=== PATIENT | female | born 2000 | race Caucasian/White ===

== ENCOUNTER 2019-09-08 04:37 | Emergency (ER) | payer MEDICAID, OTHER ==
[~2019-09-08] VITALS: Ht 162.5 cm; Wt 56.8 kg
--- NOTE | 2019-09-08 05:35 | ED Cough/URI ---
General Chief Complaint: Cough/Cold/Flu Symptoms Stated Complaint: SOB,COUGH,CHEST STANLEY,BODY ACHES Source: patient Exam Limitations: no limitations History of Present Illness Date Seen by Provider: Sep 08, 2019 Time Seen by Provider: 05:22 Initial Comments Patient presents to ER by private conveyance with significant other and chief c omplaint of one to 2 days of malaise, body aches and no fever. She's had a cough nonproductive. She says she has a history of pneumonia. She does not have a history of asthma COPD. She smokes quarter to half a pack of cigarettes per day. She's not having any significant medical history and does not follow with a primary care doctor. She does not take any medications or control. She is not having any nausea vomiting diarrhea. She took Tylenol about an hour prior to coming to the emergency room. Allergies and Home Medications Allergies Coded Allergies: No Known Drug Allergies (Unverified , 09/08/19) Patient Home Medication List Home Medication List Reviewed: Yes Review of Systems Review of Systems Constitutional: chills; No fever; malaise EENTM: No ear discharge, No ear pain Respiratory: cough; No phlegm, No short of breath, No wheezing Cardiovascular: chest pain (on coughing); No palpitations Gastrointestinal: No abdominal pain, No constipation Past Mvihkzs-Aflica-Mukwet Hx Patient Social History Alcohol Use: Denies Use Smoking Status: Current Everyday Smoker Type Used: Cigarettes Recent Foreign Travel: No Contact w/Someone Who Travel: No Physical Exam Vital Signs - First Documented 09/08/19 05:15 O2 Delivery Room Air Capillary Refill : Height: '" Weight: lbs. oz. kg; BMI Method: General Appearance: WD/WN, mild distress Eyes: Bilateral Eye Normal Inspection, Bilateral Eye PERRL, Bilateral Eye EOMI HEENT: PERRL/EOMI, normal ENT inspection, pharynx normal, TM abnormal (R) (bilateral mucoid effusion without bulging, erythema, injection or loss of tympanic membrane landmarks), TM abnormal (L) Neck: non-tender, full range of motion, supple, normal inspection Respiratory: lungs clear, normal breath sounds, no respiratory distress, no accessory muscle use Cardiovascular: normal peripheral pulses, regular rate, rhythm Neurologic/Psychiatric: alert, normal mood/affect, oriented x 3 Skin: normal color, warm/dry Progress/Results/Core Measures Suspected Sepsis SIRS Temperature: Pulse: Respiratory Rate: Blood Pressure / Mean: Results/Orders Micro Results Microbiology 09/08/19 Influenza Types A,B Antigen (ABDIAZIZ) - Final, Complete My Orders Orders - MATIAS LANGE Influenza A And B Antigens (09/08/19 05:29) Urine Bedside (09/08/19 05:29) Chest Pa/Lat (2 View) (09/08/19 05:29) Vital Signs/I&O 09/08/19 05:15 O2 Delivery Room Air Capillary Refill : Progress Note : Time: 05:34 Progress Note Patient has non-adventitious lung sounds, aseptic vital signs. She would like to rule out pneumonia. We'll get a bedside test and chest x-ray. Influenza swab. Diagnostic Imaging Diagonstic Imaging: Xray Plain Films/CT/US/NM/MRI: chest (2v) Comments No acute cardiopulmonary process. Radiology over read pending. Hardware from previous surgeries noted. Reviewed: Reviewed by Me Departure Impression Primary Impression: Upper respiratory tract infection Qualified Codes: J06.9 - Acute upper respiratory infection, unspecified Disposition: 01 HOME, SELF-CARE Condition: Stable Departure-Patient Inst. Decision time for Depature: 06:03 Referrals: NO,LOCAL PHYSICIAN (PCP/Family) Primary Care Physician Patient Instructions: Acute Bronchitis, Adult (DC) Add. Discharge Instructions: Drink plenty of fluids, humidifiers and vapor rubs can be helpful. Tylenol and ibuprofen as necessary for body aches or malaise. Udhn-xjl-pkjixcd cough symptoms medicine as necessary. Tessalon Perles 1 capsule every 6 hours as needed for cough. Follow up with your primary care provider as necessary. All discharge instructions reviewed with patient and/or family. Voiced understanding. Scripts Benzonatate (Tessalon Perle) 100 Mg Capsule 100 MG PO Q6H PRN for COUGH, #20 CAP 0 Refills Prov: MATIAS LANGE 09/08/19 MATIAS LANGE Sep 08, 2019 05:35
[2019-09-08] MEDS ORDERED: BENZ-13 PO (06:05)
[2019-09-08 06:06] VITALS: BP 117/87
--- NOTE | 2019-09-08 06:06 | NUR ---
PT ASKED MULTIPLE DIFFERENT TIMES TO STAY IN HER ROOM SHE KEPT LEAVING ROOM AND WANDERING IN THE MANN LOOKING FOR HER BOYFRIEND WHO IS ALSO A PT AND ASKING FOR FLU SWAB AND XRAY RESULTS. AT THIS TIME PT STATES, "WE LIVE TOGETHER, HE'S MY RIDE, LIKE I SHOULD BE ABLE TO GO TO HIS ROOM". EXPLAINED TO PT THAT DR. LANGE WOULD BE IN TO TALK TO HER SOON ABOUT HER RESULTS. PT STATES, "I'M GOING TO MY BOYFRIENDS ROOM AND YOU CAN'T STOP ME." PT INFORMED SHE WOULD NEED TO SIGN OUT AMA IF SHE WAS GOING TO REFUSE TO STAY IN HER ROOM AND THEIR CARE NEEDS TO BE SEPARATE AT THIS TIME. PT REFUSES TO SIGN AMA FORM.
--- NOTE | 2019-09-08 06:16 | Diagnostic Imaging Report ---
INDICATION: Cough and congestion PA and lateral chest The patient has stabilization rods in the thoracolumbar spine. Heart size and pulmonary vascularity are normal. Lungs are clear. There are no effusions or pneumothoraces. IMPRESSION: No acute abnormalities in the chest Dictated by: Dictated on workstation # [id number]
== END 2019-09-08 06:06 | disposition left against medical advice (07) ==
LOC: ER 04:42
DX: J06.9 Acute upper respiratory infection, unspecified (principal); F17.210 Nicotine dependence, cigarettes, uncomplicated
CPT/HCPCS: 71046; 84703; 87804

== ENCOUNTER 2019-11-15 14:49 | Emergency (ER) | payer MEDICAID ==
[~2019-11-15] VITALS: Ht 162.6 cm; Wt 52.2 kg
[~2019-11-15 14:49] MED LIST: BENZ-13 PO
[2019-11-15 14:50] VITALS: BP 110/77
[2019-11-15] MEDS ORDERED: LACTATED RINGERS 1,000 ML IV ONE (15:02)
[2019-11-15 15:11] LABS: BASOPHILS % (AUTO) 1 % (0-10); EOSINOPHILS # (AUTO) 0.2 10^3/uL (0.0-0.3); EOSINOPHILS % (AUTO) 2 % (0-10); HEMATOCRIT 40 % (35-52); HEMOGLOBIN 13.6 G/DL (11.5-16.0); LYMPHOCYTES # (AUTO) 1.6 X 10^3 (1.0-4.0); LYMPHOCYTES % (AUTO) 21 % (12-44); MEAN CORPUSCULAR HEMOGLOBIN 30 PG (25-34); MEAN CORPUSCULAR HGB CONC 34 G/DL (32-36); MEAN CORPUSCULAR VOLUME 90 FL (80-99); MEAN PLATELET VOLUME 11.1 FL (7.4-10.4); MONOCYTES # (AUTO) 0.5 X 10^3 (0.0-1.0); MONOCYTES % (AUTO) 6 % (0-12); NEUTROPHILS # (AUTO) 5.7 X 10^3 (1.8-7.8); NEUTROPHILS % (AUTO) 71 % (42-75); PLATELET COUNT 239 10^3/uL (130-400); RED CELL DISTRIBUTION WIDTH 12.3 % (10.0-14.5)
--- NOTE | 2019-11-15 15:11 | ED General ---
General Chief Complaint: Dizziness/Syncope Stated Complaint: SYNCOPAL EPISODE Nursing Triage Note: Pt to room #5 via [facility] from [facility] with c/o witnessed syncopal episode. Ems advise pt s/o caught pt et lowered her to the floor after experiencing episode. 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 Upon arrival pt a&ox4. Pt reports to be approx 5wks . Pt reports intermittent syncopal episodes for >2years. Pt reports to have experienced chest discomfort et SOA prior to syncopal episode. Pt denies pain or discomfort at this current time. Nursing Sepsis Screen: No Definite Risk Source of Information: Patient (SOMEWHAT VAGUE HIS) History of Present Illness Date Seen by Provider: Nov 15, 2019 Time Seen by Provider: 14:55 Initial Comments PT ARRIVES VIA [facility] FROM [facility] PT BEGAN TO GET DIZZY AND HAD NEAR-SYNCOPAL EPISODE--STATES SHE SLOWLY WENT DOWN, AND HER BOYFRIEND CAUGHT HER NO INJURY STATES THIS HAS HAPPENED SEVERAL TIMES OVER THE LAST 2 YEARS. PT STATES SHE "FEELS GREAT" NOW AND HER SYMPTOMS ARE ALL GONE STATES IMMEDIATELY PRIOR TO DIZZINESS, SHE HAD SOME CHEST PAIN AND SHORTNESS OF BREATH, AND HER ENTIRE BODY WAS NUMB AND TINGLY AND HER HEAD FELT NUMB NO VISION CHANGES NO NAUSEA/VOMITING STATES SHE IS 4 WEEKS --WENT TO [facility] IN [place], HAS NOT MADE AN SIDRA OINTMENT WITH OB YET ACCUCHECK 125 BY EMS 1506--PT NOW LEAVING AMA, AND IS REFUSING ALL TESTS, BUT 'WANTS SOMETHING TO EAT BEFORE SHE LEAVES" --ADVISED PT THAT SHE WAS FREE TO LEAVE AND GET SOMETHING TO EAT ON HER OWN PCP: NONE Allergies and Home Medications Allergies Coded Allergies: No Known Drug Allergies (Unverified , 09/08/19) Home Medications Benzonatate 100 Mg Capsule, 100 MG PO Q6H PRN for COUGH Prescribed by: MATIAS LANGE on 09/08/19 0605 Patient Home Medication List Home Medication List Reviewed: Yes Review of Systems Review of Systems Constitutional: dizziness, malaise, weakness EENTM: no symptoms reported Respiratory: see HPI Cardiovascular: see HPI Gastrointestinal: no symptoms reported Genitourinary: no symptoms reported : Yes Musculoskeletal: no symptoms reported Skin: no symptoms reported Psychiatric/Neurological: See HPI Hematologic/Lymphatic: No Symptoms Reported Immunological/Allergic: no symptoms reported Past Blhrllt-Wdzxqz-Agkpgq Hx Past Med/Social Hx: Reviewed and Corrections made Patient Social History Alcohol Use: Denies Use Recreational Drug Use: No Smoking Status: Former Smoker Type Used: Cigarettes 2nd Hand Smoke Exposure: No Recent Foreign Travel: No Contact w/Someone Who Travel: No Recent Infectious Disease Expo: No Recent Hopitalizations: No Physical Exam Vital Signs Vital Signs - First Documented 11/15/19 14:50 Pulse 92 Resp 15 B/P (MAP) 110/77 (88) Pulse Ox 100 O2 Delivery Room Air Capillary Refill : Less Than 3 Seconds Height, Weight, BMI Height: '" Weight: lbs. oz. kg; 19.00 BMI Method: General Appearance: Thin, Other (DOES NOT MAKE EYE CONTACT, APPEARS SOMEWHAT "SPACEY" WITH SOMEWHAT SLOWED THOUGHT PROCESSES) Respiratory: No Respiratory Distress Cardiovascular: Regular Rate, Rhythm Neurologic/Psychiatric: Alert, Oriented x3, Other (AMBULATES WITHOUT DIF FICULTY) Progress/Results/Core Measures Suspected Sepsis Recent Fever Within 48 Hours: No Infection Criteria Present: None New/Unexplained Altered Menta: No Sepsis Screen: No Definite Risk SIRS Temperature: Pulse: 92 Respiratory Rate: 15 Blood Pressure 110 /77 Mean: 88 Results/Orders My Orders Orders - KYLE GOMEZ DO Accucheck Stat ONCE (11/15/19 15:02) Ed Iv/Invasive Line Start (11/15/19 15:02) Ekg Tracing (11/15/19 15:02) Monitor-Rhythm Ecg Trace Only (11/15/19 15:02) Orthostatic Vital Signs (Adult (11/15/19 15:02) Acetaminophen (11/15/19 15:02) Alcohol (11/15/19 15:02) Cbc With Automated Diff (11/15/19 15:02) Comprehensive Metabolic Panel (11/15/19 15:02) Drug Screen Stat (Urine) (11/15/19 15:02) Hcg,Quantitative (11/15/19 15:02) Magnesium (11/15/19 15:02) Protime With Inr (11/15/19 15:02) Partial Thromboplastin Time (11/15/19 15:02) Salicylate (11/15/19 15:02) Thyroid Analyzer (11/15/19 15:02) Ua Culture If Indicated (11/15/19 15:02) Myoglobin Serum (11/15/19 15:02) Ed Iv/Invasive Line Start (11/15/19 15:02) Lactated Ringers (Lr 1000 Ml Iv Solution (11/15/19 15:02) Vital Signs/I&O 11/15/19 14:50 Pulse 92 Resp 15 B/P (MAP) 110/77 (88) Pulse Ox 100 O2 Delivery Room Air Capillary Refill : Less Than 3 Seconds Blood Pressure Mean: 88 ECG Initial ECG Impression Date: Nov 15, 2019 Initial ECG Impression Time: 14:54 Initial ECG Rate: 93 Initial ECG Rhythm: Normal Sinus Initial ECG Comparisson: No Previous ECG Available Departure Impression Primary Impression: Left against medical advice Disposition: 07 AGAINST MEDICAL ADVICE Condition: Against Medical Advice Departure-Patient Inst. Referrals: NO,LOCAL PHYSICIAN (PCP/Family) Primary Care Physician KYLE GOMEZ DO Nov 15, 2019 15:11
[2019-11-15 15:21] LABS: INR 1.1 (0.8-1.4); PROTHROMBIN TIME PATIENT 14.5 SEC (12.2-14.7)
[2019-11-15 15:30] LABS: ALANINE AMINOTRANSFERASE 14 U/L (0-55); ALBUMIN 4.6 GM/DL (3.2-4.5); ALKALINE PHOSPHATASE 48 U/L (40-136); BILIRUBIN,TOTAL 0.4 MG/DL (0.1-1.0); BUN/CREATININE RATIO 18; CALCIUM 9.6 MG/DL (8.5-10.1); CARBON DIOXIDE 22 MMOL/L (21-32); CHLORIDE 105 MMOL/L (98-107); CREATININE SERUM 0.68 MG/DL (0.60-1.30); GFR ESTIMATED > 60; GLUCOSE 121 MG/DL (70-105); MAGNESIUM 1.7 MG/DL (1.6-2.4); POTASSIUM 3.6 MMOL/L (3.6-5.0); SALICYLATE < 5.0 MG/DL (5.0-20.0); SODIUM 136 MMOL/L (135-145); TOTAL PROTEIN 7.3 GM/DL (6.4-8.2)
[2019-11-15 15:48] LABS: ACETAMINOPHEN < 10 UG/ML (10-30)
[2019-11-15 15:50] LABS: TSH (THYROID ANALYZER) 1.04 UIU/ML (0.35-4.94)
== END 2019-11-15 15:10 | disposition left against medical advice (07) ==
LOC: EDUNIT# 14:49 → ER 14:50
DX: O26.891 Other specified pregnancy related conditions, first trimester (principal); R55 Syncope and collapse; Z87.891 Personal history of nicotine dependence; Z3A.01 Less than 8 weeks gestation of pregnancy
CPT/HCPCS: 36415; 80053; 80320; 80329; 83735; 83874; 84443; 84702; 85025; 85610; 85730; 93005; 93041

== ENCOUNTER 2022-08-31 16:11 | Emergency (ER) | payer MEDICAID ==
[~2022-08-31] VITALS: Ht 162.5 cm; Wt 58.9 kg
--- NOTE | 2022-08-31 16:38 | ED Syncope ---
General Chief Complaint: Dizziness/Syncope Stated Complaint: NEAR SYNCOPAL EPISODE Nursing Triage Note: PT ARRIVED BY [facility]. 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 PT DENSIES LOC. HX OF HEART PALPIATIONS. Source of Information: Patient Exam Limitations: No Limitations History of Present Illness Date Seen by Provider: Aug 31, 2022 Time Seen by Provider: 16:22 Initial Comments 22-year-old female presents via EMS for near syncopal episode. Patient reports she was shopping at the mall and was checking out when she became hot, dizzy, and shaky. Patient reports she had to lie down. Patient denies loss of consciousness. Patient also complained of left chest pain that starts in epigastric area and radiates to left upper chest and some difficulty breathing. Patient reports that she ate today. Patient reports she only drinks approx imately 3 water bottles a day. Patient is breast-feeding, she has a 3-month-old at home. Patient reports she also recently recovered from the flu. Patient reports she has been seen for similar symptoms. Patient states she left AMA before the test results. Patient reports only past medical history is PVCs. Denies any current medications. Timing/Prior Episodes: Other (hx of similar symptoms) Symptoms Prior to Episode: Lightheadedness, Other (flushed) Precipitating Factors: Activity Loss of Consciousness: No Loss of Consciousness Current Symptoms: Lightheadedness, Nausea, Other (feeling flushed) Allergies and Home Medications Allergies Coded Allergies: No Known Drug Allergies (Unverified , 09/08/19) Patient Home Medication List Home Medication List Reviewed: Yes Benzonatate (Tessalon Perle) 100 Mg Capsule, 100 MG PO Q6H PRN for COUGH Prescribed by: MATIAS LANGE on 09/08/19 0605 Review of Systems Constitutional: dizziness Respiratory: no symptoms reported Cardiovascular: chest pain Gastrointestinal: abdominal pain (epigastric), nausea Genitourinary: no symptoms reported Past Qylajqo-Rqlwgy-Rfroyg Hx Patient Social History Tobacco Use?: Yes Use of E-Cig and/or Vaping dev: Yes E-Cig or Vaping type used: Nicotine Substance use?: No Alcohol Use?: No Physical Exam Vital Signs Vital Signs - First Documented 08/31/22 16:14 Temp 35.9 Pulse 83 B/P (MAP) 137/75 (95) Pulse Ox 100 O2 Delivery Room Air Capillary Refill : Height, Weight, BMI Height: '" Weight: lbs. oz. kg; 22.00 BMI Method: General Appearance: Mild Distress, Other (shaking, anxious) HEENT: PERRL/EOMI Neck: Non Tender, Supple Cardiovascular: Regular Rate, Rhythm, No Edema, No Gallop, No JVD, No Murmur Respiratory: Chest Non Tender, Lungs Clear, Normal Breath Sounds, No Accessory Muscle Use, No Respiratory Distress Gastrointestinal: Normal Bowel Sounds, No Organomegaly, No Pulsatile Mass, Non Tender, Soft Extremities: Normal Inspection, Normal Range of Motion Neurologic/Psychiatric: Alert, Oriented x3, kick press operator II-XII Norm as Tested Cranial Nerves: Normal Hearing, Normal Speech, PERRL Coordination/Gait: Normal Gait Motor/Sensory: No Motor Deficit, No Sensory Deficit Skin: Normal Color, Warm/Dry Progress/Results/Core Measures Results/Orders Lab Results Laboratory Tests Test 08/31/22 16:15 08/31/22 16:40 08/31/22 16:54 Range/Units White Blood Count 9.1 4.3-11.0 10^3/uL Red Blood Count 4.43 3.80-5.11 10^6/uL Hemoglobin 12.2 11.5-16.0 g/dL Hematocrit 37 35-52 % Mean Corpuscular Volume 83 80-99 fL Mean Corpuscular Hemoglobin 28 25-34 pg Mean Corpuscular Hemoglobin Concent 33 32-36 g/dL Red Cell Distribution Width 16.0 H 10.0-14.5 % Platelet Count 358 130-400 10^3/uL Mean Platelet Volume 10.5 9.0-12.2 fL Immature Granulocyte % (Auto) 0 % Neutrophils (%) (Auto) 52 42-75 % Lymphocytes (%) (Auto) 34 12-44 % Monocytes (%) (Auto) 9 0-12 % Eosinophils (%) (Auto) 4 0-10 % Basophils (%) (Auto) 1 0-10 % Neutrophils # (Auto) 4.8 1.8-7.8 10^3/uL Lymphocytes # (Auto) 3.1 1.0-4.0 10^3/uL Monocytes # (Auto) 0.8 0.0-1.0 10^3/uL Eosinophils # (Auto) 0.3 0.0-0.3 10^3/uL Basophils # (Auto) 0.1 0.0-0.1 10^3/uL Immature Granulocyte # (Auto) 0.0 0.0-0.1 10^3/uL Sodium Level 138 135-145 MMOL/L Potassium Level 3.5 L 3.6-5.0 MMOL/L Chloride Level 106 98-107 MMOL/L Carbon Dioxide Level 18 L 21-32 MMOL/L Anion Gap 14 5-14 MMOL/L Blood Urea Nitrogen 15 7-18 MG/DL Creatinine 0.65 0.60-1.30 MG/DL Estimat Glomerular Filtration Rate 127 BUN/Creatinine Ratio 23 Glucose Level 90 70-105 MG/DL Calcium Level 9.1 8.5-10.1 MG/DL Corrected Calcium 8.8 8.5-10.1 MG/DL Magnesium Level 1.8 1.6-2.4 MG/DL Total Bilirubin 0.3 0.1-1.0 MG/DL Aspartate Amino Transf (AST/SGOT) 18 5-34 U/L Alanine Aminotransferase (ALT/SGPT) 22 0-55 U/L Alkaline Phosphatase 73 40-136 U/L Troponin I < 0.028 <0.028 NG/ML Total Protein 7.5 6.4-8.2 GM/DL Albumin 4.4 3.2-4.5 GM/DL Lipase 56 8-78 U/L Prothrombin Time 13.9 12.2-14.7 SEC INR Comment 1.0 0.8-1.4 Activated Partial Thromboplast Time 32 24-35 SEC Urine Color YELLOW Urine Clarity CLEAR Urine pH 6.5 5-9 Urine Specific [place] 1.020 1.016-1.022 Urine Protein NEGATIVE NEGATIVE Urine Glucose (UA) NEGATIVE NEGATIVE Urine Ketones NEGATIVE NEGATIVE Urine Nitrite NEGATIVE NEGATIVE Urine Bilirubin NEGATIVE NEGATIVE Urine Urobilinogen 0.2 < = 1.0 MG/DL Urine Leukocyte Esterase TRACE H NEGATIVE Urine RBC (Auto) NEGATIVE NEGATIVE Urine RBC NONE /HPF Urine WBC RARE /HPF Urine Squamous Epithelial Cells 2-5 /HPF Urine Crystals NONE /LPF Urine Bacteria NEGATIVE /HPF Urine Casts NONE /LPF Urine Mucus NEGATIVE /LPF Urine Culture Indicated NO My Orders Orders - GRAY LIGHT ORGANIC PREPARATION ANALYST Cbc With Automated Diff (08/31/22 16:32) Magnesium (08/31/22 16:32) Chest 1 View, Ap/Pa Only (08/31/22 16:32) Comprehensive Metabolic Panel (08/31/22 16:32) Protime With Inr (08/31/22 16:32) Partial Thromboplastin Time (08/31/22 16:32) Monitor-Rhythm Ecg Trace Only (08/31/22 16:32) Ed Iv/Invasive Line Start (08/31/22 16:32) Troponin I [place] (08/31/22 16:32) Ed Iv/Invasive Line Start (08/31/22 16:32) Ns Iv 1000 Ml (Sodium Chloride 0.9%) (08/31/22 16:45) Ua Culture If Indicated (08/31/22 16:32) Urine Bedside (08/31/22 16:32) Ondansetron Injection (Zofran Injectio (08/31/22 16:45) Lipase (08/31/22 16:44) Medications Given in ED Current Medications Medications Dose Ordered Sig/John Route Start Time Stop Time Status Last Admin Dose Admin Ondansetron HCl 4 mg ONCE ONCE IVP 08/31/22 16:45 08/31/22 16:46 DC 08/31/22 16:43 4 MG Vital Signs/I&O 08/31/22 16:14 Temp 35.9 Pulse 83 B/P (MAP) 137/75 (95) Pulse Ox 100 O2 Delivery Room Air Blood Pressure Mean: 95 Progress Progress Note #1: Time: 16:25 Progress Note Patient seen and evaluated. Work-up initiated including CBC, CMP, lipase, coags , troponin, UA and UCG. IV fluids ordered for possible dehydration. Zofran ordered for nausea. Progress Note #2: Time: 17:24 Progress Note Patient reevaluated. Discussed results of test with patient. Symptoms likely related to dehydration. Patient instructed to increase water intake. Decrease coffee intake as well as other caffeinated and high sugar drinks. Patient instructed follow-up with primary care provider. Initial ECG Impression Date: Aug 31, 2022 Initial ECG Impression Time: 14:30 Initial ECG Rate: 79 Initial ECG Rhythm: Normal Sinus Initial ECG Intervals: Normal Initial ECG Impression: Normal Initial ECG Comparisson: Unchanged Diagnostic Imaging Diagonstic Imaging: Xray Plain Films/CT/US/NM/MRI: chest Comments Date of Exam:08/31/22 CHEST 1 VIEW, AP/PA ONLY EXAMINATION: Chest 1 view HISTORY: Chest pain COMPARISON: None available. FINDINGS: Heart size and pulmonary vasculature are normal. The lungs are clear without consolidation, pleural effusion, or pneumothorax. Surgical changes from multilevel spinal fusion. IMPRESSION: 1. No acute radiographic abnormality in the chest. Dictated by: Dictated on workstation # [id number] Dict: 08/31/221706 Trans: 08/31/221711 [facility] [id number] Interpreted by: JASIEL BRUMFIELD DO Electronically signed by: JASIEL BRUMFIELD DO 08/31/221711 Departure Impression Primary Impression: Dizziness Disposition: 01 HOME, SELF-CARE Condition: Stable Departure-Patient Inst. Decision time for Depature: 17:25 Referrals: NO,LOCAL PHYSICIAN (PCP/Family) Primary Care Physician Patient Instructions: Dizziness, Adult ED Add. Discharge Instructions: Symptoms likely related to dehydration. Increase water intake. Decrease coffee and other caffeinated and high sugar drinks. Follow-up with primary care provider. Return for any new or concerning symptoms. All discharge instructions reviewed with patient and/or family. Voiced understanding. GRAY LIGHT APRN Aug 31, 2022 16:38
[2022-08-31 16:39] LABS: BASOPHILS # (AUTO) 0.1 10^3/uL (0.0-0.1); BASOPHILS % (AUTO) 1 % (0-10); EOSINOPHILS # (AUTO) 0.3 10^3/uL (0.0-0.3); EOSINOPHILS % (AUTO) 4 % (0-10); HEMATOCRIT 37 % (35-52); HEMOGLOBIN 12.2 g/dL (11.5-16.0); LYMPHOCYTES # (AUTO) 3.1 10^3/uL (1.0-4.0); LYMPHOCYTES % (AUTO) 34 % (12-44); MEAN CORPUSCULAR HEMOGLOBIN 28 pg (25-34); MEAN CORPUSCULAR HGB CONC 33 g/dL (32-36); MEAN CORPUSCULAR VOLUME 83 fL (80-99); MEAN PLATELET VOLUME 10.5 fL (9.0-12.2); MONOCYTES # (AUTO) 0.8 10^3/uL (0.0-1.0); MONOCYTES % (AUTO) 9 % (0-12); NEUTROPHILS # (AUTO) 4.8 10^3/uL (1.8-7.8); NEUTROPHILS % (AUTO) 52 % (42-75); PLATELET COUNT 358 10^3/uL (130-400); WHITE BLOOD COUNT 9.1 10^3/uL (4.3-11.0)
[2022-08-31 16:42] LABS: ALBUMIN 4.4 GM/DL (3.2-4.5)
[2022-08-31 16:43] LABS: POTASSIUM 3.5 MMOL/L (3.6-5.0)
[2022-08-31 16:44] LABS: CALCIUM 9.1 MG/DL (8.5-10.1)
[2022-08-31 16:45] LABS: TOTAL PROTEIN 7.5 GM/DL (6.4-8.2)
[2022-08-31] MEDS ORDERED: ONDANSETRON 4 MG/2 ML (SDV) Z0FRAN IVP ONE (16:45)
[2022-08-31] MEDS ORDERED: NS IV 1000 ML 1,000 ML IV SCH (16:45)
[2022-08-31 16:47] LABS: BILIRUBIN,TOTAL 0.3 MG/DL (0.1-1.0)
[2022-08-31 16:49] LABS: CREATININE SERUM 0.65 MG/DL (0.60-1.30)
[2022-08-31 16:52] LABS: MAGNESIUM 1.8 MG/DL (1.6-2.4)
[2022-08-31 17:02] LABS: BILIRUBIN,URINE NEGATIVE (NEGATIVE); CLARITY,URINE CLEAR; COLOR,URINE YELLOW; GLUCOSE, URINE (UA) NEGATIVE (NEGATIVE); KETONES,URINE NEGATIVE (NEGATIVE); LEUKOCYTE ESTERASE ,URINE TRACE (NEGATIVE); NITRITE,URINE NEGATIVE (NEGATIVE); PH,URINE 6.5 (5-9); PROTEIN,URINE NEGATIVE (NEGATIVE)
[2022-08-31 17:02] LABS: PROTHROMBIN TIME PATIENT 13.9 SEC (12.2-14.7)
--- NOTE | 2022-08-31 17:12 | Diagnostic Imaging Report ---
EXAMINATION: Chest 1 view HISTORY: Chest pain COMPARISON: None available. FINDINGS: Heart size and pulmonary vasculature are normal. The lungs are clear without consolidation, pleural effusion, or pneumothorax. Surgical changes from multilevel spinal fusion. IMPRESSION: 1. No acute radiographic abnormality in the chest. Dictated by: Dictated on workstation # [id number]
[2022-08-31 17:13] LABS: BACTERIA,URINE NEGATIVE /HPF; WBC,URINE RARE /HPF
[2022-08-31 17:36] VITALS: BP 119/71
== END 2022-08-31 17:38 | disposition home or self-care (01) ==
LOC: EDUNIT# 16:11 → ER 16:13
DX: R42 Dizziness and giddiness (principal); R11.0 Nausea; R07.89 Other chest pain; F17.290 Nicotine dependence, other tobacco product, uncomplicated; Z28.310 Unvaccinated for COVID-19
CPT/HCPCS: 36415; 71045; 80053; 81000; 83690; 83735; 84484; 84703; 85025; 85610; 85730; 93005; 93041